=== PATIENT | female | born 2000 | race Caucasian/White ===

== ENCOUNTER 2019-01-31 19:21 | Emergency (ER) | payer SELFPAY ==
[2019-01-31 19:21] VITALS: BP 101/60
[~2019-01-31 19:21] MED LIST: CEPH250C37 PO
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
[2019-01-31] MEDS ORDERED: IBUPROFEN 600 MG TAB PO ONE (20:25)
[2019-01-31] MEDS ORDERED: ONDANSETRON 4 MG ODT TABDP SL ONE (22:15)
[2019-01-31] MEDS ORDERED: ONDA4TAB97 PO (22:15)
[2019-01-31] MEDS ORDERED: ONDANSETRON 4 MG ODT TH SL ONE (22:15)
[2019-01-31] MEDS ORDERED: LEVONORGESTREL 1.5 MG TAB PO ONE (22:15)
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
== END 2019-01-31 22:11 | disposition home or self-care (01) ==
LOC: ER 19:30
DX: R10.2 Pelvic and perineal pain (principal); T76.21XA Adult sexual abuse, suspected, initial encounter
CPT/HCPCS: 81025; 99284; A9270; S0119

== ENCOUNTER 2019-02-14 21:07 | Emergency (ER) | payer SELFPAY ==
[~2019-02-14 21:07] MED LIST changes: +ONDA4TAB97 PO
[2019-02-14 21:14] VITALS: BP 143/95
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
[2019-02-14 21:50] LABS: PLATELET COUNT, AUTOMATED 374 K/uL (150-450)
== END 2019-02-15 00:32 ==
LOC: ER 21:15
DX: R45.851 Suicidal ideations (principal); S51.812A Laceration without foreign body of left forearm, initial encounter; S51.811A Laceration without foreign body of right forearm, initial encounter; X78.9XXA Intentional self-harm by unspecified sharp object, initial encounter
CPT/HCPCS: 36415; 80305; 80320; 80329; 81001; 81025; 82040; 82247; 82310; 82374; 82435; 82565; 82947; 83735; 84075; 84132; 84155; 84295; 84443; 84450; 84460; 84520; 85025; 99284

== ENCOUNTER 2019-02-14 23:39 | Inpatient (IN) | payer OTHER ==
[~2019-02-14] VITALS: Ht 149.9 cm; Wt 43.1 kg
[2019-02-15] MEDS: traZODone HCL 50 MG TAB PO PRN ×2 (01:45→21:23)
[2019-02-15 02:39] VITALS: BP 134/82
[2019-02-15 13:45] VITALS: BP 104/62
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
[2019-02-16 06:15] VITALS: BP 96/73
--- NOTE | 2019-02-16 12:50 | BHS Progress Note ---
[facility] - Subjective Progress Notes Subjective "I'm good. I've been working on my wellness and recovery packet." She denies suicidal thoughts today reporting that her last suicidal thought was on Sunday prior to admission. She reports that she slept well. She is reporting that she is feeling safe for discharge with plan to leave either this evening after the therapy day or tomorrow if team is in agreement. She will meet with the therapist to solidify discharge plan and relapsed prevention plan. Suicidal Ideation: None Homicidal Ideation: None [facility] - Objective Physical Exam Vital Signs Vital Signs Date Time Temp Pulse Resp B/P (MAP) Pulse Ox O2 Delivery O2 Flow Rate FiO2 02/16/19 06:15 98.5 93 15 96/73 (81) 97 Room Air Muscle Strength and Tone: WNL Gait and Station: Steady [facility] Medications Reviewed: Side Effects, Benefits of Medication, Risks (no current psychotropic medications) Allergies Reviewed: Yes Mental Status Exam General Appearance: Casual, Well Groomed, Good Eye Contact, Cooperative, Polite, Good Interaction; No Unkept, No Tearful, No Psychomotor Agitation, No Psychomotor Retardation, No Bizarre Mannerisms, No Tics Speech: Clear, Spontaneous, Normal Rate, Normal Rhythm, Normal Volume Mood: Dysthmic/Depressed Affect: Full and Appropriate, Calm; No Sad, No Neutral, No Flat, No Withdrawn, No Tearful; Anxious; No Agitated Thought Process: Organized, Logical, Goal Directed; No Loose Associations, No Flight of Ideas Thought Content: No Suicidal Ideation (denied); Homicidal Ideation, Delusions, Auditory Halllucinations, Visual Hallucinations, Thought Broadcasting, Ideas of Reference, Obsessions, Compulsions Sensorium: Clear Cognition: Alert & Oriented-Person, Alert & Oriented-Place, Alert & Oriented- Time, Uwkrm-Nzfwuqrn-Dqqtahhuw Memory: Immediate, Recent, Remote (grossly intact) Intelligence: Average Insight Judgment: Appropriate [facility] Assessment and Plan [id number] Encounter Date: Feb 16, 2019 Mspy-[id number] Encounter Time: 08:30 [facility] Plan: Admit to Unit, Necessary Precautions, Individual/Group Therapy, Admin/Titrate Meds, Educate Patient Tobacco Medications: Not Appropriate Condition Multpiple Antipsychotics Used: No Problems: (1) Adjustment disorder Status: Acute (2) Adjustment disorder with depressed mood Condition Client is denying suicidal thoughts with last occurrence prior to admission when she admits that she was feeling overwhelmed. She reports that she has gained coping skills and plans to continue with outpatient support. We will continue discharge planning with plan to discharge either this evening or tomorrow. Problem Qualifiers (1) Adjustment disorder: Adjustment disorder type: with depressed mood Qualified Codes: F43.21 - Adjustment disorder with depressed mood LU ALATORRE NP Feb 16, 2019 12:50
[2019-02-16 14:10] VITALS: BP 102/62
[2019-02-16 19:38] VITALS: BP 115/81
[2019-02-16] MEDS: traZODone HCL 50 MG TAB PO PRN (20:45)
[2019-02-17 06:28] VITALS: BP 95/71
[2019-02-17] MEDS ORDERED: TRAZ50TA34 PO (11:05)
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
== END 2019-02-17 11:47 | disposition home or self-care (01) | DRG 881 ==
LOC: BHS 23:39
PROVIDERS: ADMIT Nurse Practitioner Psychiatric/Mental Health; ATTEND Nurse Practitioner Psychiatric/Mental Health
DX: F43.21 Adjustment disorder with depressed mood (principal); R45.851 Suicidal ideations; F43.12 Post-traumatic stress disorder, chronic; Z91.5 Personal history of self-harm; Z91.410 Personal history of adult physical and sexual abuse; Z88.1 Allergy status to other antibiotic agents; Z73.3 Stress, not elsewhere classified; Z65.8 Other specified problems related to psychosocial circumstances
CPT/HCPCS: 81001